=== PATIENT | female | born 1980 | race Caucasian/White ===

== ENCOUNTER 2018-07-01 18:10 | Emergency (ER) | payer SELFPAY ==
[2018-07-01] MEDS ORDERED: Diazepam SYRINGE* 5 MG/ML 2 ML SYRINGE (10 MG total) IV ONE (19:28)
[2018-07-01] MEDS ORDERED: Diazepam INJ (NF) 5 MG/ML 10 ML VIAL (50 MG TOTAL) IV ONE (19:28)
[2018-07-01] MEDS ORDERED: NS 0.9% 1000 ML** 1,000 ML IV ONE (19:28)
--- NOTE | 2018-07-01 19:35 | ED ---
Substance Abuse/Use - HPI Summary HPI Summary: This pt is a 37 y/o female presenting to [facility] c/o withdrawal from Tramadol. Pt reports she has been taking Tramadol for the past 18 months. She was taking 10 pills every 5 hours, each pill of 50 mg. She takes Tramadol for her left foot pain, where she had plantar fasciitis. Denies any surgery to this foot. Pt notes initially her medications were prescribed by her PCP but then she started to take Tramadol from the [employer] where she works. Pt stopped taking Tramadol 3 days ago but today she took 3 pills of Tramadol at about 15:00. Pt today c/o chills, tremors, cold sweats, nausea, diarrhea. Denies vomiting, chest pain, SOB, weakness, headache. She wishes to stop taking Tramadol. Denies hx of depression or anxiety. - History Of Current Complaint Chief Complaint: EDDetoxRequest Stated Complaint: WITHDRAWL Time Seen by Provider: 07/01/18 19:14 Hx Obtained From: Patient Hx Last Menstrual Period: iud Onset/Duration of Drug/ETOH Abuse: Weeks - 18 months Ingestion History: Type/Name Of Drug - Tramadol, Amount Ingested - 10 pills every 5 hours, 50 mg each Overdose Characteristics: Oral Timing Of Abuse: Daily, Binge Use Severity Currently: Moderate Aggravating Factor(s): Nothing Alleviating Factor(s): Nothing Associated Signs And Symptoms: Tremulous, Nausea, Diarrhea, Other: - POS: chills and cold sweats - Allergies/Home Medications Allergies/Adverse Reactions: Allergies Allergy/AdvReac Type Severity Reaction Status Date / Time contrast dye Allergy Hives Uncoded 09/01/15 13:58 PMH/Surg Hx/FS Hx/Imm Hx Endocrine/Hematology History: Denies: Hx Diabetes, Hx Thyroid Disease Cardiovascular History: Denies: Hx Hypertension Respiratory History: Denies: Hx Asthma, Hx Chronic Obstructive Pulmonary Disease (COPD) GI History: Denies: Hx Ulcer - Surgical History Surgery Procedure, Year, and Place: 2 c-sections, choley, hernia repair, exp lap for endometriosis Infectious Disease History: No Infectious Disease History: Denies: Hx Hepatitis, Hx Human Immunodeficiency Virus (HIV), Traveled Outside the [place] in Last 30 Days - Family History Known Family History: Negative: Cardiac Disease, Hypertension, Diabetes - Social History Alcohol Use: None Substance Use Type: Reports: Other - Tramadol Smoking Status (MU): Never Smoked Tobacco Review of Systems Positive: Chills, Skin Diaphoresis - cold sweats. Negative: Fever Negative: Chest Pain Negative: Shortness Of Breath Positive: Diarrhea, Nausea. Negative: Vomiting Musculoskeletal: Other - POS: left foot pain Neurological: Other - POS: tremulous Negative: Headache, Weakness All Other Systems Reviewed And Are Negative: Yes Physical Exam - Summary Physical Exam Summary: VITAL SIGNS: Reviewed. GENERAL: Patient is a well-developed and nourished female who is lying comfortable in the stretcher. Patient is not in any acute respiratory distress. HEAD AND FACE: No signs of trauma. No ecchymosis, hematomas or skull depressions. No sinus tenderness. EYES: PERRLA, EOMI x 2, No injected conjunctiva, no nystagmus. EARS: Hearing grossly intact. Ear canals and tympanic membranes are within normal limits. MOUTH: Oropharynx within normal limits. NECK: Supple, trachea is midline, no adenopathy, no JVD, no carotid bruit, no c- spine tenderness, neck with full ROM. CHEST: Symmetric, no tenderness at palpation LUNGS: Clear to auscultation bilaterally. No wheezing or crackles. CVS: Tachycardic rate and regular rhythm, S1 and S2 present, no murmurs or gallops appreciated. ABDOMEN: Soft, non-tender. No signs of distention. No rebound no guarding, and no masses palpated. Bowel sounds are normal. EXTREMITIES: FROM in all major joints, no edema, no cyanosis or clubbing. NEURO: Alert and oriented x 3. No acute neurological deficits. Speech is normal and follows commands. SKIN: Dry and warm Triage Information Reviewed: Yes Vital Signs On Initial Exam: Initial Vitals Temp Pulse Resp BP Pulse Ox 98.5 F 127 18 154/102 97 07/01/18 18:15 07/01/18 18:15 07/01/18 18:15 07/01/18 18:15 07/01/18 18:15 Vital Signs Reviewed: Yes Diagnostics - Vital Signs Vital Signs Temp Pulse Resp BP Pulse Ox 07/01/18 18:15 98.5 F 127 18 154/102 97 - Laboratory Result Diagrams: 07/01/18 19:52 07/01/18 19:52 Lab Statement: Any lab studies that have been ordered have been reviewed, and results considered in the medical decision making process. - EKG 19:58 Cardiac Rate: Tachycardia - at 103 bpm EKG Rhythm: Sinus Tachycardia Summary of EKG Findings: [place] Re-Evaluation - Re-Evaluation First Eval Re-Evaluation Time: 21:10 Change: Improved Comment: Pt reports feeling better. She will be discharged home with a list of detox centers. Course/Dx - Course Assessment/Plan: Pt is a 37 y/o female who presents with withdrawal from Tramadol. Pt reports she has been taking Tramadol for the past 18 months. She was taking 10 pills every 5 hours, each pill of 50 mg. She takes Tramadol for her left foot pain. Pt today c/o chills, tremors, cold sweats, nausea, diarrhea. Blood work was obtained. In the ED course the pt was given IV fluids and Valium. On re-evaluation pt is feeling better. She will be discharged home with prescriptions for Valium and Reglan. Pt was also given a list detox centers that she can call to make appointments with them. Pt was instructed to return to the ED for any worsening or new symptoms. She understands and agrees. - Diagnoses Provider Diagnoses: Opiate withdrawal Discharge - Sign-Out/Discharge Documenting (check all that apply): Patient Departure - Discharge home - Discharge Plan Condition: Stable Disposition: HOME Prescriptions: Diazepam TAB(*) [Valium TAB(*)] 5 mg PO BID PRN #10 tab MDD 2 PRN Reason: Anxiety Metoclopramide TAB* [Reglan TAB*] 10 mg PO Q6H PRN #20 tab PRN Reason: Nausea/Vomiting Patient Education Materials: Opioid Withdrawal (ED) Referrals: Lionel Pinedo MD [Primary Care Provider] - Additional Instructions: You have been provided with a sheet of local resources for detox centers. Please follow up with one of these centers. RETURN TO EMERGENCY DEPARTMENT FOR ANY NEW OR WORSENING SYMPTOMS. - Attestation Statements Document Initiated by Scribe: Yes Documenting Scribe: Radha Benson Provider For Whom Joi is Documenting (Include Credential): Moni Auguste MD Scribe Attestation: Radha Anderson, scribed for Moni Auguste MD on 07/01/18 at 2120. Status of Scribe Document: Ready
[2018-07-01 20:01] LABS: ABS Basophils 0.1 10^3/ul (0-0.2); ABS Eosinophils 0 10^3/ul (0-0.6); ABS Lymphocytes 4.2 10^3/ul (1.0-4.8); ABS Monocytes 1.2 10^3/ul (0-0.8); ABS Neutrophils 10.5 10^3/ul (1.5-7.7); ABS Nucleated RBC 0 10^3/ul; Eosinophil % 0.3 %; Hematocrit 46 % (35-47); Hemoglobin 15.7 g/dl (12.0-16.0); Lymphocyte % 26.1 %; Mean Corpuscular HGB Conc 34 g/dl (31-36); Mean Corpuscular Hemoglobin 31 pg (27-31); Mean Corpuscular Volume 91 fL (80-97); Mean Platelet Volume 7.3 fL (7.4-10.4); Nucleated Red Blood Cells % 0.1; Platelet Count 341 10^3/ul (150-450); Red Cell Distribution Width 13 % (10.5-15)
[2018-07-01 20:17] LABS: ALT 41 U/L (7-52); AST 19 U/L (13-39); Albumin/Globulin Ratio 1.4 (1-3); Alkaline Phosphatase 85 U/L (34-104); Anion Gap 8 mmol/L (2-11); BUN/Creatinine Ratio 14.9 (8-20); Blood Urea Nitrogen 14 mg/dL (6-24); CO2 Carbon Dioxide 28 mmol/L (22-32); Calcium 9.3 mg/dL (8.6-10.3); Chloride 103 mmol/L (101-111); Creatine Kinase 46 U/L (10-223); EGFR Non-African American 67.8 (>60); Globulin 2.9 g/dL (2-4); Glucose 96 mg/dL (70-100); Potassium 3.5 mmol/L (3.5-5.0); Sodium 139 mmol/L (135-145); Total Protein 6.9 g/dL (6.4-8.9)
[2018-07-01 20:30] LABS: Alcohol < 10 mg/dL (<10); Salicylate < 2.50 mg/dL (<30)
[2018-07-01 20:32] LABS: HCG Pregnancy < 0.60 mIU/mL
[2018-07-01 20:45] LABS: TSH (Thyroid Stimulating Horm) 2.68 mcIU/mL (0.34-5.60)
[2018-07-01 21:25] LABS: Urine Appearance Cloudy; Urine Bacteria Absent (Absent); Urine Bilirubin Negative (Negative); Urine Blood Negative (Negative); Urine Color Amber; Urine Glucose Negative (Negative); Urine Ketones 1+ (Negative); Urine Nitrite Negative (Negative); Urine Protein 1+(30 mg/dL) (Negative); Urine Red Blood Cell Absent (Absent); Urine Specific Gravity 1.032 (1.010-1.030); Urine Squamous Epithelial Cell Present (Absent); Urine Urobilinogen Negative (Negative); Urine White Blood Cell Trace(0-5/hpf) (Absent)
[2018-07-01 21:41] LABS: Barbiturates Urine Screen None Detected (None Detect); Benzodiazepine Urine Screen Presumptive Positive (None Detect); Urine Cannabinoids Screen None Detected (None Detect)
[2018-07-01 21:54] VITALS: BP 157/91
== END 2018-07-01 21:54 | disposition home or self-care (01) ==
LOC: ED 18:10
DX: F11.23 Opioid dependence with withdrawal (principal); R11.0 Nausea; R19.7 Diarrhea, unspecified
CPT/HCPCS: 36415; 80053; 80307; 80320; 80329; 81003; 81015; 82550; 84443; 84702; 85025; 87086; 93005; 96361; 96374; 96375; 99283; G0480; J3360